=== PATIENT | male | born 1935 | race Caucasian/White ===

== ENCOUNTER → 2016-12-05 | Outpatient (CLI) | payer MEDICARE, OTHER ==
[~2016-12-05] MED LIST: ASPI81TA82 PO; ATOR10TA PO; ISOS30 PO; LOSA25 PO; METO25 PO; NEXI40CA PO; NITR.3 SL; ZOFR4TAB3 SL
== END ==
LOC: TMNT 09:07
PROVIDERS: ATTEND Internal Medicine
DX: N18.9 Chronic kidney disease, unspecified (principal); R63.4 Abnormal weight loss
CPT/HCPCS: 97802